=== PATIENT | male | born 1940 | race Caucasian/White ===

== ENCOUNTER 2020-09-24 22:21 | Emergency (ER) | payer MEDICARE ==
--- NOTE | 2020-09-24 22:30 | ED.PDOC ---
History of Present Illness - General Chief Complaint: Laceration Time Seen by Provider: 09/24/20 22:23 Source: patient, RN notes reviewed, Vital Signs reviewed - History of Present Illness Initial Comments: 80 yo LHD male was cutting some wires when he accidentally cut the tip of his right thumb. no numbness, full rom. tetanus last year. Occurred: just prior to arrival Allergies/Adverse Reactions: Allergies Hydromorphone [From Dilaudid] Allergy (Verified 09/24/20 23:04) Ibuprofen [From Motrin] Allergy (Verified 09/24/20 23:04) Home Medications: Ambulatory Orders Fluticasone Furoate-Vilanterol [Breo Ellipta 100-25 Mcg/INH] 09/24/20 Influenza Virus Vac Split High [Fluzone High-Dose Pf 2020 0.7 ml] 09/24/20 Montelukast [Singulair] 09/24/20 Ranolazine [Ranexa] 09/24/20 Review of Systems - Review of Systems Constitutional: Denies: chills, fever EENTM: Denies: blurred vision, ear discharge Respiratory: Denies: cough, short of breath Cardiology: Denies: chest pain, palpitations Gastrointestinal/Abdominal: Denies: abdominal pain, diarrhea, nausea Genitourinary: Denies: discharge Musculoskeletal: States: back pain - chronic, muscle pain. Denies: joint pain Skin: States: see HPI Neurological: Denies: numbness, paresthesia, tingling, tremors Endocrine: Denies: unexplained weight gain, unexplained weight loss Hematologic/Lymphatic: States: easy bleeding - on plavix and asa Past Medical History (General) - Patient Medical History Hx Seizures: No Hx Stroke: No Hx Dementia: No Hx Asthma: Yes Hx of COPD: No Hx Cardiac Disorders: Yes Hx Pacemaker: No Hx Hypertension: No Hx Diabetes: No Surgical History: other - hand surgery Family Medical History - Family History Mother Family History: Unknown Physical Exam - Physical Exam General Appearance: Alert, Comfortable, No apparent distress, Well Developed, Well Groomed, Well Hydrated, Well Nourished Eyes, Ears, Nose, Throat Exam: PERRL/EOMI, normal ENT inspection Neck: non-tender, full range of motion, supple, normal inspection Cardiovascular/Respiratory: regular rate, rhythm, normal peripheral pulses, normal breath sounds, no respiratory distress Back Exam: normal inspection Hand Exam: laceration - 2 cm laceration on distal soliman surface of thumb, flexion and extension intact. Neuro/Tendon: normal sensation, normal motor functions, normal tendon functions, responds to pain Mental Status: alert, oriented x 3 Skin Exam: normal color, warm/dry Procedures - Laceration/Wound Repair Right Finger Wound's Depth, Shape: superficial Wound Explored: clean Irrigated w/ Saline (cc's): 1,000 Anesthesia: 1% Lidocaine Volume Anesthetic (cc's): 5 Wound Repaired With: sutures Suture Size/Type: 4:0, prolene Number of Sutures: 5 Sterile Dressing Applied?: Yes Departure - Departure Clinical Impression: Laceration Time of Disposition: 23:01 Disposition: Discharge to Home or Self Care Departure Forms: ED Discharge - Pt. Copy, Patient Portal Self Enrollment Instructions: DI for Laceration Repair, Laceration Repair Diet: resume usual diet Home Medications: Ambulatory Orders Fluticasone Furoate-Vilanterol [Breo Ellipta 100-25 Mcg/INH] 09/24/20 Influenza Virus Vac Split High [Fluzone High-Dose Pf 2020 0.7 ml] 09/24/20 Montelukast [Singulair] 09/24/20 Ranolazine [Ranexa] 09/24/20 Additional Instructions: suture removal in 10-14 days. return sooner if signs of infection, warmth, red, drainage.
[2020-09-24] MEDS ORDERED: LIDOCAINE 1% 10 ML VIAL INJ ONE (22:33)
--- NOTE | 2020-09-24 22:48 | RAD ---
EXAM: Thumb,Right CLINICAL HISTORY: laceration COMPARISON: None. TECHNIQUE: 3 views of the right thumb. FINDINGS: Anatomic alignment. No fracture, dislocation or destructive osseous lesion. Osteoarthrosis. Soft tissue laceration, without evidence of radiopaque foreign material. IMPRESSION: 1. No fracture, traumatic malalignment or radiopaque foreign body. Electronically signed by: Clyde Thomas MD 09/24/2020 10:47 PM [facility]
[2020-09-24 23:04] VITALS: TEMP 98.3; O2SAT 95
[2020-09-24 23:10] VITALS: BP 114/77
== END 2020-09-24 23:16 | disposition home or self-care (01) ==
LOC: ER 22:21
DX: S61.011A Laceration without foreign body of right thumb without damage to nail, initial encounter (principal); W45.8XXA Other foreign body or object entering through skin, initial encounter; Y93.89 Activity, other specified; J45.909 Unspecified asthma, uncomplicated; I51.9 Heart disease, unspecified; Z79.82 Long term (current) use of aspirin; Z79.02 Long term (current) use of antithrombotics/antiplatelets; Z79.899 Other long term (current) drug therapy; Z88.5 Allergy status to narcotic agent; Z88.6 Allergy status to analgesic agent; Y92.9 Unspecified place or not applicable